=== PATIENT | female | born 1990 | race Two or more races ===

== ENCOUNTER 2025-01-01 12:12 | Inpatient (IN) ==
[2025-01-01 12:20] VITALS: BMI 35.2
[2025-01-01 13:04] LABS: AMNISURE ROM TEST THERE IS A RUPTURE (NO RUPTURE)
[2025-01-01 13:36] LABS: MEAN PLATELET VOLUME 9.6 fL (7.4-11.0); RED CELL DISTRIBUTION WIDTH 15.0 % (11.6-16.5)
[2025-01-01] MEDS ORDERED: REGLAN INJ 10 MG VIAL IVP PRN (13:39)
[2025-01-01] MEDS ORDERED: ZOFRAN INJ 4 MG VIAL IVP PRN (13:39)
[2025-01-01] MEDS ORDERED: NUBAIN INJ 20 MG AMP IVP PRN (13:39)
[2025-01-01 13:47] LABS: COR CA(FOR HYPOALB) 9.4 mg/dL (8.5-10.1); CREATININE 0.60 mg/dL (0.55-1.02); eGFR NON BLACK RACES > 60 (>60)
[2025-01-01] MEDS: D5 1/2 NS 1,000 ML 1,000 ML IV SCH (13:55)
[2025-01-01 13:56] LABS: BLOOD/HEMOGLOBIN,URINE 1+ (NEGATIVE); LEUKOCYTE ESTERASE ,URINE NEGATIVE (NEGATIVE); NITRITES,URINE NEGATIVE (NEGATIVE)
[2025-01-01] MEDS: OXYTOCIN 20 UNIT/1,000 ML-NS 20 UNIT/1,000 ML PLAST..BAG IV PRN (14:00)
[2025-01-01 14:04] LABS: APPEARANCE,URINE CLEAR (CLEAR)
[2025-01-01 14:05] LABS: SQUAMOUS EPITHELIAL CELL,UR RARE /HPF (NEGATIVE)
--- NOTE | 2025-01-01 14:49 | US ---
EXAM: OB GREATER THAN 14 WEEKS LIMIT HISTORY: VAGINAL BLEEDING; COMPARISON: None. TECHNIQUE: Ob ultrasound exam obtained in standard fashion. FINDINGS: A single, living intrauterine is identified in cephalic presentation with mean gestational age of 39 weeks 1 day on the basis of biparietal diameter, head circumference, abdominal circumference and femoral length. The estimated weight is 3059 grams. heart motion was identified with the heart rate of 132 beats per minute. The placenta is fundal and demonstrates normal echogenicity. The amniotic fluid is adequate, with amniotic fluid index measuring 14.9 cm. No definite abnormalities are identified on anatomic survey. IMPRESSION: 1. Single, living intrauterine in cephalic presentation with mean gestational age of 39 weeks, 1 day. 2. Fundal placenta without any evidence of placenta previa or placental abruption. THIS IS AN ELECTRONICALLY VERIFIED FINAL REPORT 01/01/2025 2:45 PM - Electronically signed by Jose Kothari MD
--- NOTE | 2025-01-01 16:16 | DR.OB ---
OB QUICK NOTE Assessment/Plan (1) Active labor: Assessment/Plan: L&D 01/01/25 at 4:10pm Pitocin=10mu/min. S-No complaint except pain with CTX. O-Afebrile,VSS ZPM=584 with good LTV, +accel, no decel. CTX=q 1 1/2 min., about 45-65mmHg CVX=3cm/50%/-1/VTX A-IUP at 39 0/7 weeks in active labor SROM Late PNC AMA P-Cont. pitocin induction Anticipate
[2025-01-01] MEDS: PITOCIN ONE (16:49)
[2025-01-01] MEDS: LR 1,000 ML IV 1,000 ML IV ONE (17:27)
[2025-01-01] MEDS: NAROPIN EPIDURAL 0.2% 100 ML ONE (18:11)
[2025-01-01] MEDS: FENTANYL VIAL INJ 100 mcg ONE (18:42)
[2025-01-01] MEDS: PITOCIN IVP ONE (21:21)
[2025-01-01] MEDS ORDERED: MOTRIN TAB 800 MG PO PRN ×2 (21:32→22:26)
[2025-01-01] MEDS: OXYTOCIN 20 UNIT/1,000 ML-NS 20 UNIT/1,000 ML PLAST..BAG IV SCH (22:00)
[2025-01-01] MEDS ORDERED: AMBIEN PO PRN (22:26)
[2025-01-01] MEDS ORDERED: MILK OF MAGNESIA PO PRN (22:26)
[2025-01-01] MEDS ORDERED: DERMOPLAST PAIN RELIEF SPRAY TOP PRN (22:26)
[2025-01-02 03:57] VITALS: RESP 18
[2025-01-02] MEDS: ADACEL or BOOSTRIX TDaP VACCINE IM ONE ×2 (05:55→06:12)
[2025-01-02] MEDS: PRENATAL PLUS PO SCH (08:13)
[2025-01-03 08:24] VITALS: O2SAT 97
--- NOTE | 2025-01-03 08:49 | DR.OB ---
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 and mother stable. Head delivered over intact perineum. Nuchal cord x 1 noted but loose and not reduced. Nose and mouth bulb suctioned. Body delivered over intact perineum. Cord clamped x 2 and cut. handed to attendant. Cord sent for gases. Placenta delivered spontaneously / intact / 3 vessel cord. No CVX / vaginal / perineal tears noted. Viable female infant delivered by , VTX/OA, wt=6'11" and 8/9, stable to NBN. Mother stable to RR. EIJ=[id number].
[2025-01-03] MEDS ORDERED: DEPO-PROVERA CONTRACEPTIVE INJ IM ONE (08:51)
[2025-01-03] MEDS: DEPO-PROVERA CONTRACEPTIVE INJ IM ONE (11:17)
[2025-01-03 11:46] VITALS: BP 122/78; PULSE 78; TEMP 98.2
== END 2025-01-03 13:11 | disposition home or self-care (01) | DRG 807 ==
LOC: ER 12:12 → LD 13:39 → MED/SURG 22:29
PROVIDERS: ADMIT Specialist; ATTEND Specialist
DX: O80 Encounter for full-term uncomplicated delivery; Z3A.39 39 weeks gestation of pregnancy; Z37.0 Single live birth; Z55.8 Other problems related to education and literacy